=== PATIENT | female | born 1995 | race Hispanic/Latino ===

== ENCOUNTER 2018-11-09 06:30 | Inpatient (IN) | payer OTHER ==
[~2018-11-09] VITALS: Ht 157.5 cm; Wt 89.0 kg
--- NOTE | 2018-11-09 11:11 | PR ---
[facility] [address], [place] [address] Signed Progress Notes IP Datetime Report Generated by CPN: 11/09/2018 11:11 PROGRESS NOTES: [id number] Impression: Reassuring heart rate Plan: Continue present management Other Informed Consents: Reviewed epidural VITAL SIGNS: [id number] Vital Signs: Reviewed; Within Normal Limits EXAM: [id number] Dilatation: 2.5 Effacement: 60 Station: -3 Uterine Contractions: q 3-4 min MEMBRANES: [id number] Pooling: Negative Membrane Status: Intact Comments: Pt seen and evaluated. Doing well. Ctxs increasing in frequency and intensity on pitocin. Considering epidural soon. Reviewed plan of care w/ pt and RN. All questions answered. Fetus A: [id number] FHR Baseline: 140 Variability: Moderate 6-25bpm Accelerations: None Decelerations: None FHR Category: Category I Presentation: Vertex Other Presentation: MIRA Comments on Fetus A: No evidence of metabolic acidosis Fetus B: [id number] Signing Physician: Israel Lawson DO Copies: ~ *Electronically Signed* 11/09/18 1111 ISRAEL LAWSON DO PATIENT NAME: FARIDEH HUNTLEY PROGRESS NOTE DATE OF : [birth year] PHYSICIAN: ISRAEL LAWSON DO RPT #: [id number] REPORT IS CONFIDENTIAL AND NOT TO BE RELEASED WITHOUT AUTHORIZATION
--- NOTE | 2018-11-09 15:07 | PR ---
[facility] [address] [place], [place] [address] Signed Progress Notes IP Datetime Report Generated by TYRELL: 11/09/2018 15:07 PROGRESS NOTES: [id number] Impression: Normal progression of labor; Reassuring heart rate Procedures: Artificial ROM; Sterile Vag Exam Plan: Continue present management Informed Consent Obtain: Vaginal Delivery Other Informed Consents: AROM VITAL SIGNS: [id number] Vital Signs: Reviewed; Within Normal Limits EXAM: [id number] Dilatation: 6.0 Effacement: 85 Station: -3 Uterine Contractions: q 2-4 minutes MEMBRANES: [id number] Pooling: Negative Membrane Status: Intact Amniotic Fluid Color: Bloody ROM Note: After verbal consent, vertex evaluated and found to be well applied after pitocin. AROM performed for small amount of blood tinged fluid. Mother and baby tolerated well. Cervix checked several times to ensure vertex remained well applied and no cord prolapse or compound presentation occured. Comments: Pt seen and examined. Doing well. S/P epidural w/ good pain relief. CTXs regular on pitocin, and vertex well applied. AROM performed as above without difficulty. Will continue pit @ current settings and anticipate . Small amount of blood noted w/ possible marginal abruption. Fetus tolerating labor well and no contraindication to attempted vaginal delivery. Fetus A: [id number] FHR Baseline: 130 Variability: Moderate 6-25bpm Accelerations: 15X15 Decelerations: None FHR Category: Category I Presentation: Vertex Other Presentation: MIRA Comments on Fetus A: No evidence of metabolic acidosis Fetus B: [id number] Signing Physician: Israel Lawson DO *Electronically Signed* 11/09/18 1507 ISRAEL LAWSON DO PATIENT NAME: FARIDEH HUNTLEY PROGRESS NOTE DATE OF : 93 PHYSICIAN: ISRAEL ALWSON DO RPT #: [id number] REPORT IS CONFIDENTIAL AND NOT TO BE RELEASED WITHOUT AUTHORIZATION [place] [id number] [place] [address] Signed Copies: ~ *Electronically Signed* 11/09/18 [facility] LAWSONISRAEL DO PATIENT NAME: FARIDEH HUNTLEY PROGRESS NOTE DATE OF : 93 PHYSICIAN: ISRAEL LAWSON DO RPT #: [id number] REPORT IS CONFIDENTIAL AND NOT TO BE RELEASED WITHOUT AUTHORIZATION
--- NOTE | 2018-11-09 16:18 | PR ---
[facility] [address] [place], [place] [address] Signed Progress Notes IP Datetime Report Generated by TYRELL: 11/09/2018 16:18 PROGRESS NOTES: [id number] Impression: Normal progression of labor; Reassuring heart rate Procedures: Sterile Vag Exam Plan: Anticipate Vaginal Delivery Informed Consent Obtain: Vaginal Delivery Other Informed Consents: AROM VITAL SIGNS: [id number] Vital Signs: Reviewed; Within Normal Limits EXAM: [id number] Dilatation: 9.5 Effacement: 100 Station: -1 Uterine Contractions: q1-2 min MEMBRANES: [id number] Pooling: Negative Membrane Status: Intact Amniotic Fluid Color: Bloody ROM Note: After verbal consent, vertex evaluated and found to be well applied after pitocin. AROM performed for small amount of blood tinged fluid. Mother and baby tolerated well. Cervix checked several times to ensure vertex remained well applied and no cord prolapse or compound presentation occured. Comments: Pt doing well. Comfortable w/ epidural. Variable decelerations noted and pt noted to have advanced cervical dilation. Will set up for delivery. Anticipate soon. Fetus A: [id number] FHR Baseline: 120 Variability: Moderate 6-25bpm Accelerations: None Decelerations: Variable FHR Category: Category II Presentation: Vertex Other Presentation: MIRA Comments on Fetus A: No evidence of metabolic acidosis Fetus B: [id number] Signing Physician: Israel Lawson DO *Electronically Signed* 11/09/18 8584 ISRAEL LAWSON DO PATIENT NAME: FARIDEH HUNTLEY PROGRESS NOTE DATE OF : 93 PHYSICIAN: ISRAEL LAWSON DO RPT #: [id number] REPORT IS CONFIDENTIAL AND NOT TO BE RELEASED WITHOUT AUTHORIZATION [facility] [address] [place] [address] [place] [address] Signed Copies: ~ *Electronically Signed* 11/09/18 1618 ISRAEL LAWSON DO PATIENT NAME: FARIDEH HUNTLEY PROGRESS NOTE DATE OF : 93 PHYSICIAN: ISRAEL LAWSON DO RPT #: [id number] REPORT IS CONFIDENTIAL AND NOT TO BE RELEASED WITHOUT AUTHORIZATION
--- NOTE | 2018-11-10 09:54 | PR ---
[facility] [address] [facility] [place], [place] [address] Signed PP Progress Notes Datetime Report Generated by CPLeila: 11/10/2018 09:54 SUBJECTIVE: [id number] Pain: Within normal limits Nausea/Vomiting: Denies Flatus: Yes Bowel Movement: No Vital Signs: [id number] Vital Signs: Reviewed; Within Normal Limits EXAM: [id number] Cardiovascular: Normal Respiratory: Normal Abdomen/Uterus: Normal Lochia: Normal Vulva/Perineum: Not Done Breasts: Normal CVA Tenderness: Normal Extremities: Normal Incision: Not Applicable Progress: Normal Exam Comments: Fundus firm U-2 nontender IMPRESSION/PLAN/PROCEDURES: [id number] Impression: Normal progression Plan: Discharge Progress Notes: Pt seen and examined. Doing well. Ambulating, voiding, and tolerating full diet. Pain and lochia minimal. well. No fevers/chills/lightheadedness. Hgb 11.3. Pt desires d/c home. Reviewed pp instructions in detail. D/C home today and f/u in office in 2 wks, sooner if needed Signing Physician: Israel Lawson DO Copies: ~ *Electronically Signed* 11/10/18 0954 ISRAEL LAWSON DO PATIENT NAME: FARIDEH HUNTLEY PROGRESS NOTE DATE OF : 93 PHYSICIAN: ISRAEL LAWSON #: [id number] REPORT IS CONFIDENTIAL AND NOT TO BE RELEASED WITHOUT AUTHORIZATION
--- NOTE | 2018-11-10 09:55 | PR ---
[facility] [address] [facility] [place], [place] [address] Signed PP Progress Notes Datetime Report Generated by CPLeila: 11/10/2018 09:55 SUBJECTIVE: [id number] Pain: Within normal limits Nausea/Vomiting: Denies Flatus: Yes Bowel Movement: No Vital Signs: [id number] Vital Signs: Reviewed; Within Normal Limits EXAM: [id number] Cardiovascular: Normal Respiratory: Normal Abdomen/Uterus: Normal Lochia: Normal Vulva/Perineum: Not Done Breasts: Normal CVA Tenderness: Normal Extremities: Normal Incision: Not Applicable Progress: Normal Exam Comments: Fundus firm U-2 nontender IMPRESSION/PLAN/PROCEDURES: [id number] Impression: Normal progression Plan: Discharge Progress Notes: Pt seen and examined. Doing well. Ambulating, voiding, and tolerating full diet. Pain and lochia minimal. well. No fevers/chills/lightheadedness. Hgb 11.3. Pt desires d/c home. Reviewed pp instructions in detail. D/C home today and f/u in office in 2 wks, sooner if needed Signing Physician: Israel Lawson DO Copies: ~ *Electronically Signed* 11/10/18 0955 ISRAEL LAWSON DO PATIENT NAME: FARIDEH HUNTLEY PROGRESS NOTE DATE OF : 93 PHYSICIAN: ISRAEL LAWSON DO RPT #: [id number] REPORT IS CONFIDENTIAL AND NOT TO BE RELEASED WITHOUT AUTHORIZATION
== END 2018-11-10 18:45 | disposition home or self-care (01) | DRG 807 ==
LOC: FBC 06:30 → FBCO 06:30 → FBC 06:49 → DS 08:15 → FBC 09:14
PROVIDERS: ADMIT Obstetrics & Gynecology
PROC: 10E0XZZ Delivery of Products of Conception, External Approach (ICD-10-PCS; principal; 2018-11-09)
PROC: 0KQM0ZZ Repair Perineum Muscle, Open Approach (ICD-10-PCS; 2018-11-09)
PROC: 10907ZC Drainage of Amniotic Fluid, Therapeutic from Products of Conception, Via Natural or Artificial Opening (ICD-10-PCS; 2018-11-09)
PROC: 3E033VJ Introduction of Other Hormone into Peripheral Vein, Percutaneous Approach (ICD-10-PCS; 2018-11-09)
PROC: 00HU33Z Insertion of Infusion Device into Spinal Canal, Percutaneous Approach (ICD-10-PCS; 2018-11-09)
PROC: 3E0R3BZ Introduction of Anesthetic Agent into Spinal Canal, Percutaneous Approach (ICD-10-PCS; 2018-11-09)
DX: O32.0XX0 Maternal care for unstable lie, not applicable or unspecified (principal); Z37.0 Single live birth; Z3A.39 39 weeks gestation of pregnancy; O76 Abnormality in fetal heart rate and rhythm complicating labor and delivery; O69.1XX0 Labor and delivery complicated by cord around neck, with compression, not applicable or unspecified; O70.1 Second degree perineal laceration during delivery
CPT/HCPCS: 01960; 36415; 85027; J2590; J2795; J3010; J7120